=== PATIENT | female | born 1950 | race Caucasian/White ===

== ENCOUNTER 2024-02-08 15:00 | Emergency (ER) | payer MEDICARE, SELFPAY ==
[2024-02-08 15:02] VITALS: BP 171/75; PULSE 103; RESP 16; TEMP 36.7; O2SAT 92; BMI 25.9
[2024-02-08 15:06] VITALS: TEMP 36.8
--- NOTE | 2024-02-08 15:18 | ED.VIS.FALL ---
HPI HPI - Fall History of Present Illness Chief Complaint: Fall Detail of Chief Complaint: Fall with left arm injury Informant: patient Narrative Narrative: Patient presents to the emergency department via EMS after sustaining a fall this afternoon. Patient states that her landlord had just pain at her back and after the rain she slipped and fell on her deck. Patient fell onto her left arm injuring it. Denies striking her head or loss of consciousness. She denies neck pain or chest pain or abdominal pain. She has no other complaints. She is not on blood thinners. Patient is right-hand dominant. PFSH PFSH Home Medications ?Medication ?Instructions ?Recorded ?Last Taken ?Type hydrocodone-acetaminophen 5-325mg 1 tab PO Q4H PRN PRN Pain 2 days 02/08/24 Unknown Rx 5mg-325mg #15 TABLETS Allergy/AdvReac Type Severity Reaction Status Date / Time No Known Allergies Allergy Verified 02/08/24 15:06 ROS ROS ED Review of Systems ROS Unobtainable: other Constitutional Constitutional ED: Reports lethargy; Denies chills, fever(s), sweats or weight loss Eyes Eyes: Denies blurry vision, change in vision or diplopia ENT ENT ED: Denies rhinorrhea or sore throat Cardiovascular Cardiovascular: Denies chest pain, orthopnea or racing heartbeat Respiratory/Chest Respiratory/Chest: Denies cough, dyspnea, dyspnea on exertion, orthopnea or sputum Gastrointestinal Gastrointestinal: Denies abdominal pain, diarrhea, nausea or vomiting Genitourinary Genitourinary ED: Denies dysuria, hematuria or urinary frequency Musculoskeletal Musculoskeletal: Reports other Details: Left upper arm injury/pain ; Denies arthralgias, back pain, myalgias or neck pain Integumentary Denies abscess, Abrasions or rash Neurologic Neurologic: Denies headache(s) or weakness Psychiatric Psychiatric: Denies anxiety, depression or suicidal thoughts Endocrine Endocrinology: Denies polydipsia, polyphagia or polyuria Hematologic/Lymphatic Hematologic/Lymphatic: Denies easy bleeding, easy bruising or lymphadenopathy Allergic/Immunologic Allergic/Immunologic ED: Denies mouth swelling, tongue swelling or urticaria EXAM Physical Exam Const Vital Signs: 02/08/24 15:02 02/08/24 15:06 Temperature 98.1 F 98.3 F Temperature Source Temporal Oral Pulse Rate 103 H Respiratory Rate 16 Blood Pressure 171/75 H Blood Pressure Mean 107 Pulse Ox 92 Oxygen Delivery Method Room Air Positive well nourished and well developed General Appearance ED: well developed and NAD HEENT Reports TM's clear and moist mucous membranes normocephalic and atraumatic; Negative for trauma or tenderness Tympanic Membrane ED: Yes TM's clear Eyes PERRL and EOMs intact bilaterally General Eye ED: Negative for pale conjunctiva or scleral icterus Neck no lymphadenopathy, supple and no JVD General: Negative for tenderness Chest Wall inspection of chest normal and palpation of chest normal Chest: Negative for tenderness Resp normal respiratory effort and clear to auscultation bilaterally Effort and Inspection: Negative for respiratory distress or pain with movement Auscultation: Negative for rhonchi, wheezes or diminished lung sounds Cardio regular rate, regular rhythm, S1 normal heart sound, S2 normal heart sound and no murmurs Peripheral Pulses: pulses 2+ throughout GI normal to inspection, nondistended, normoactive bowel sounds, soft to palpation, non-tender, non-distended and no masses Back/Spine no CVA tenderness and no thoracic nor lumbar tenderness Extremity Extremity Narrative: Left upper arm-patient has diffuse tenderness over the area of the glenohumeral joint. There is no obvious sulcus sign or deformity noted. No significant ecchymosis or bruising. She has decreased ability to abduct and move the arm at the glenohumeral joint secondary to pain. She has no tenderness at the elbow and normal range of motion at the elbow and wrist. Neurovascularly intact. General Extremety ED: Negative for edema General Extremity: Negative for edema Neuro oriented x3, CN's II-XII intact bilaterally, no sensory deficits noted and gait normal Sensorium / Orientation: awake, alert, oriented to person, oriented to place and oriented to time Motor Exam: strength 5/5 throughout and strength abnormal Psych mental status grossly normal Skin no rashes or lesions noted and no wounds MDM MDM MDM Narrative Medical decision making narrative: Patient presents with fall and injury to the left upper arm. X-rays interpreted by myself as proximal humerus fracture. Patient will be placed in a sling. I did give her a dose of morphine and Zofran IM. She will be given a prescription for [place] and refer to orthopedics for follow-up. She will be placed in a sling. Radiography Diagnostic Testin view x-rays of left humerus obtained interpreted by myself as fracture of the proximal humerus relatively nondisplaced. Official report from radiology pending. Discharge Plan Triage Chief Complaint: Fall ED Provider: Aretha Grossman Dx/Rx/DC Orders Clinical Impression: Closed fracture of left proximal humerus Instructions: ED Fracture, Upper Extremity Prescriptions: New hydrocodone-acetaminophen 5-325 mg tablet 1 tab PO Q4H PRN PRN (Reason: Pain) 2 Days Qty: 15 0RF Primary Care Provider: PodlogAye denis NP Referrals: Pan Bull MD [Med Staff - Active Staff] - 3-5 Days Print Language: Belarusian Disposition Disposition: Home, Self Care
--- NOTE | 2024-02-08 15:20 | RAD_ITS ---
STUDY: X-RAY - LEFT HUMERUS REASON FOR EXAM: Female, 74 years old. Fall/ injury TECHNIQUE: 2 view(s) of the humerus. COMPARISON: None. FINDINGS: Nondisplaced transverse fracture of the surgical neck of the proximal humerus. This extends to the greater tuberosity. Soft tissue swelling RAD/Humerus min 2 Views IMPRESSION: Nondisplaced fracture through the surgical neck of the proximal humerus with extension to the greater tuberosity. Soft tissue swelling. Electronically Signed: Julio Rocha MD at 15:39 EDT ,
[2024-02-08] MEDS: Ondansetron 4 MG/2 ML Vial IM (15:57)
[2024-02-08] MEDS: Morphine 4 MG/ML Syringe IM (15:57)
== END 2024-02-08 16:19 | disposition home or self-care (01) ==
LOC: ED 15:46
PROVIDERS: Emergency Provider Emergency Medicine; PCP Nurse Practitioner Primary Care; Visit Provider Emergency Medicine
DX: S42.215A Unspecified nondisplaced fracture of surgical neck of left humerus, initial encounter for closed fracture (principal); Y92.89 Other specified places as the place of occurrence of the external cause
CPT/HCPCS: 73060; 96372; 99284; J2405

== ENCOUNTER 2024-04-03 12:30 | Outpatient (RCR) | payer MEDICARE, SELFPAY ==
--- NOTE | 2024-02-23 11:55 | HP.PTEVAL ---
Patient's Visit Information Visit Information Visit Information: ANN HOFFMAN is a 74 year old F referred to Physical Therapy by Dr. Pan Bull MD with a diagnosis of Closed Fx of L proximal humerus. Date of Evaluation: 02/23/24 Physical Therapist: SCARLET Robbins Visit Plan Frequency: 1-2x /Week Duration: 2 Months Plan: 1-2X/ week for 8 weeks for Prom of the L shoulder and then progress to AAROM to AROM and scapular strengthening. May start some light strengthening after 4-6 weeks from injury as long as pain free AROM. May use heat/ice as needed HEP: shoulder blade squeezes, Shoulder rolls, pendulums Subjective Subjective: Pt slipped on her wet porch and fell on her L shoulder. Her pain is mid shaft area and it hurts with movement. It is still bruised. she fell 2 weeks ago this past Tuesday. She is R handed. She is not sleeping very long due to the pain. She is sleeping on a couch and has pain when she rolls over on her L shoulder. She will try to go back into her bed tonight. She has some N&T in her legs and claim they are weak. She was in a sling until Tuesday. Pain L shoulder pain: Pain Intensity (Out of 10): 4 Comment: if tries to move it the pain increases Objective Objective: R handed Observation: Pt is still bruised. Pt is guarded in her motion Pt is able to do shoulder rolls and shoulder blade squeezes without issue PROM L shoulder flexion 95, 42 ER PROM at 30 degrees ABD , L shoulder PROM ABD approx 90 Pendulums hurt fw/bw but ok side to side Balance/Special Test Scores Quick DASH Score: 84.0900 Goals Goal 1:: I HEP Goal Time Frame: 6-8 Weeks Goal 2:: Increase AROM to 120 degrees elevation by discharge Goal Time Frame: 6-8 Weeks Goal 3:: Be able to use L shoulder with ADL's without pain or difficulty Goal Time Frame: 6-8 Weeks Goal 4:: Increase PROM to 160 degrees elevation ER PROM Goal Time Frame: 6-8 Weeks Rehabilitation Potential Rehabilitation Potential: Good Anticipated Interventions Patient/Client Instruction: Educate patient on: Condition and Plan of Care For the Purpose of:: To decrease pain, To decrease swelling/inflammation, To increase ROM, To improve nutrient delivery to tissue, To improve muscle performance and motor function, To improve ability to perform ADL's, To increase tolerance to activity/condition/position, To improve performance and independence with ADL's, To improve ability of physical actions for home/community/work/leisure, To improve health of tissue, To decrease soft tissue restriction and To increase flexibility/ROM Therapeutic Exercise to Include: Strength training, Endurance training, Postural training, Flexibilty training, Neuromotor development, Passive ROM, Active ROM and Scapular Strength/Stabilization For the Purpose of:: To decrease pain, To increase ROM, To improve nutrient delivery to tissue, To improve muscle performance and motor function, To improve ability to perform ADL's, To increase tolerance to activity/condition/position, To improve performance and independence with ADL's, To decrease level of supervision to perform tasks, To improve health of tissue, To decrease soft tissue restriction and To increase flexibility/ROM Manual Therapy Techniques to Include: Passive ROM For the Purpose of:: To increase ROM Cryotherapy (ice pack, ice massage): Yes Thermo therapy (hot pack): Yes For the Purpose of:: To decrease pain, To decrease swelling/inflammation and To improve nutrient delivery to tissue Text: Thank you for the opportunity to evaluate your patient. For Medicare and Medicare HMO plans, please review the plan of care and approve it. It will need to be FAXED BACK to us at [phone] for Medicare purposes. For Medicare only, by signing this I certify the plan of care. Please let me know if there are questions or concerns regarding this plan of care. Physician Signature: Date:
--- NOTE | 2024-04-03 13:18 | HP.PTDCSUM ---
Discharge Summary D/C summary: It has been my pleasure to treat ANN HOFFMAN referred by Dr. Pan Bull MD, with the diagnosis of Closed Fx of L proximal humerus (02/07). for a total of 6 visit(s). Discharge Date: 04/03/24 Please see the following information for a summary of their discharge status. Subjective Subjective: Pt wants to be discharged and reports that she works really hard at home and will continue to do so. Pain L shoulder pain: Pain Intensity (Out of 10): 0 Overall Improvement % Improvement: 50 Objective Objective/Function: L shoulder AROM 115 flexion L Shoulder PROM 165 flexion Goals Goal 1:: I HEP Goal Progress: Goal Met Goal 2:: Increase AROM to 120 degrees elevation by discharge Goal Progress: Progressing Goal 3:: Be able to use L shoulder with ADL's without pain or difficulty Goal Progress: Goal Met Goal 4:: Increase PROM to 160 degrees elevation ER PROM Goal Progress: Goal Met Plan Plan: DC PT to HEP per pt request D/C Information Discharge Comments: DC PT to HEP per pt request d/c sentence: If there are questions or concerns regarding this patient's physical therapy, please feel free to call me at [phone]. Thank you for the referral of this patient. Sincerely, India Jones, MPT Balance/Gait/Functional tests Balance/Special Test Scores Quick DASH Score: 15.9075 Improvement % Improvement: 50
== END 2024-04-03 13:33 | disposition home or self-care (01) ==
LOC: PT 12:30
PROVIDERS: PCP Nurse Practitioner Primary Care; Referring Provider Orthopaedic Surgery Sports Medicine; Visit Provider Orthopaedic Surgery Sports Medicine
DX: S42.202D Unspecified fracture of upper end of left humerus, subsequent encounter for fracture with routine healing (principal)
CPT/HCPCS: 97110; 97140; 97161; 97530

== ENCOUNTER 2024-11-13 10:40 | Emergency (ER) | payer MEDICARE, SELFPAY ==
[2024-11-13 10:43] VITALS: BP 215/60; PULSE 78; RESP 16; TEMP 35.9; O2SAT 98
--- NOTE | 2024-11-13 11:08 | EX.ED.DYSGE1 ---
HPI History of Present Illness Chief Complaint: Dizziness Informant: patient and family Narrative Narrative: 74-year-old female that lives by herself has been having episodic dizziness that feels like spinning for the past 3.5 days. She is triggering the episodes whenever she changes positions or turns her head, for instance either when getting up from a seated position, or turning to go around the corner in her home, and they last a couple minutes no more than 5 before resolves when she rests. Some nausea no vomiting. She has been having some fullness in her head, but no cisco headache associated with this. No vision changes. No peripheral neurologic symptoms such as numbness or weakness on one side of her body, however she is feeling like there are needles everywhere in her body at the same time when this occurs. She denies any chest pain, dyspnea, neck pain. She does have some fullness in her ears but no earache. No tinnitus. [facility] Medical History Arthritis Hyperlipidemia HTN (hypertension) Home Medications ?Medication ?Instructions ?Recorded ?Last Taken ?Type hydrochlorothiazide 12.5 mg capsule 12.5 mg PO DAILY 02/08/24 11/12/24 History omeprazole 40 mg capsule,delayed 40 mg PO DAILY 02/08/24 11/12/24 History release rosuvastatin 10 mg tablet 10 mg PO QHS 02/08/24 11/12/24 History ascorbic acid (vitamin C) 500 mg 500 mg PO DAILY 11/13/24 11/12/24 History tablet loratadine 10 mg tablet 10 mg PO DAILY 11/13/24 11/12/24 History (Allerclear) meclizine 25 mg tablet 25 mg PO TID PRN dizziness #20 tabs 11/13/24 Unknown Rx potassium gluconate 600 mg (99 mg) 600 mg PO DAILY 11/13/24 11/12/24 History tablet Allergy/AdvReac Type Severity Reaction Status Date / Time No Known Allergies Allergy Verified 11/13/24 10:40 Social History (Updated 11/13/24 @ 11:48 by Martha Solorio) household members: spouse housing: house Smoking Status: Current every day smoker tobacco type: cigarettes alcohol intake: never ROS ROS ED Constitutional Constitutional ED: Denies chills or fever(s) Eyes Eyes: Denies change in vision or diplopia ENT ENT ED: Denies rhinorrhea or sore throat Cardiovascular Cardiovascular: Denies chest pain or palpitations Respiratory/Chest Respiratory/Chest: Denies cough or dyspnea Gastrointestinal Gastrointestinal: Reports nausea; Denies abdominal pain, diarrhea or vomiting Genitourinary Genitourinary ED: Denies dysuria or hematuria Musculoskeletal Musculoskeletal: Denies back pain or neck pain Integumentary Denies abscess or rash Neurologic Neurologic: Reports as per HPI, vertigo and other Details: Abnormal gait when vertiginous, but when not vertiginous no problems with walking with her walker ; Denies headache(s), paresthesias or weakness Psychiatric Psychiatric: Denies anxiety or suicidal thoughts EXAM Physical Exam Const Vital Signs: 11/13/24 10:43 11/13/24 12:40 11/13/24 14:00 Temperature 96.6 F L Temperature Source Temporal Pulse Rate 78 87 78 Respiratory Rate 16 16 16 Blood Pressure 215/60 H 169/112 H 124/69 H Blood Pressure Mean 111 131 87 Pulse Ox 98 96 98 Oxygen Delivery Method Room Air 11/13/24 14:14 Temperature 97.6 F L Temperature Source Pulse Rate 78 Respiratory Rate 16 Blood Pressure 124/69 H Blood Pressure Mean 87 Pulse Ox 98 Oxygen Delivery Method Positive well nourished and well developed General Appearance ED: well developed and NAD HEENT Reports TM's clear and moist mucous membranes HEENT Narrative: No sinus tenderness throughout. normocephalic and atraumatic Tympanic Membrane ED: Yes TM's clear Eyes PERRL and EOMs intact bilaterally Eyes Narrative: No direction changing nystagmus. No vertical or rotatory nystagmus. Exam somewhat limited due to cataracts and baseline issues with vision. Negative skew test, performed when mildly vertiginous. Normal visual field exam. Neck full ROM and supple Resp normal respiratory effort and clear to auscultation bilaterally Cardio regular rate, regular rhythm and no murmurs GI non-tender and non-distended Auscultation: normoactive bowel sounds Palpation: soft Back/Spine no CVA tenderness General Back: other FROM Extremity normal to inspection General Extremety ED: Negative for edema, pulses abnormal or tenderness General Extremity: Negative for edema or pulses abnormal Neuro oriented x3, CN's II-XII intact bilaterally and no sensory deficits noted Neuro Narrative: No dysmetria, [id number] and [id number] bilaterally normal. NIHSS 0. Normal speech. Sensorium / Orientation: awake and alert Motor Exam: strength 5/5 throughout Psych mental status grossly normal Skin no rashes or lesions noted and no wounds MDM MDM MDM Narrative Medical decision making narrative: This patient is presenting with symptoms that are compatible with BPPV. I did [place]-Hallpike maneuver, she had triggered symptoms with the maneuver bilaterally was worse to the right. I then attempted to do a jolt test, but symptoms were resolving while attempting this and she has poor vision, so the results were ambiguous and limited. Given her meclizine and also obtaining some basic labs and a CT of the head due to the fact that her blood pressure in triage was 215/60 and she is having fullness sensation to evaluate for sphenoid or other sinusitis that could be related to this. She states she feels congested but it is not in her nose. Labs are obtained and unremarkable, CT was obtained I reviewed the images and the report, which I agree with. It is negative for any acute including sinusitis or sphenoid sinusitis. In the meantime the patient's blood pressure came down to 124/69 over time, without specifically treating it, and the meclizine we gave her did help minimize her symptoms some. When she got up and change positions to walk, she was still getting a little dizzy but it soften the symptoms. I offered admission she declined and prefers to go home. She understands her risk of falling. We discussed getting rid of area rugs, using her walker to prevent falls, and I gave her a prescription for meclizine along with a referral to ENT if her symptoms do not self-resolve. She is comfortable with that plan. Lab Data Attestation: I reviewed the patient's lab results. Labs: Laboratory Results - last 24 hr 11/13/24 11:45 WBC 8.4 RBC 4.39 Hgb 12.7 Hct 39.1 MCV 89.1 MCH 28.9 MCHC 32.5 RDW Std Deviation 43.1 RDW Coeff of Tracey 13.1 Plt Count 519 H MPV 8.6 Immature Gran % (Auto) 0.200 Neut % (Auto) 67.5 Lymph % (Auto) 24.8 [place] % (Auto) 6.4 Eos % (Auto) 0.4 Baso % (Auto) 0.7 Absolute Neuts (auto) 5.7 Absolute Lymphs (auto) 2.09 Nucleated RBC % 0 Sodium 133 Potassium 3.7 Chloride 96 L Carbon Dioxide 25.5 Anion Gap 11 BUN 7 Creatinine 0.55 L Est GFR (MDRD) Non-Af 95 BUN/Creatinine Ratio 12.8 Glucose 106 H Calcium 9.4 Radiography Diagnostic Testing: Clinical Impression(s) from Imaging Studies Brain CT 11/13/24 12:00 IMPRESSION: 1. No acute intracranial hemorrhage, midline shift or mass effect. If symptoms persist, further evaluation with MRI is recommended. 2. Mild small vessel ischemic/degenerative changes. Reading Location: [facility] Discharge Plan Triage Chief Complaint: Dizziness ED Provider: Delgado [place] Dx/Rx/DC Orders Clinical Impression: Benign paroxysmal positional vertigo, Episode of hypertension Instructions: BPPV Prescriptions: New meclizine 25 mg tablet 25 mg PO TID PRN (Reason: dizziness) Qty: 20 0RF No Action loratadine [Allerclear] 10 mg tablet 10 mg PO DAILY ascorbic acid (vitamin C) 500 mg tablet 500 mg PO DAILY potassium gluconate 600 mg (99 mg) tablet 600 mg PO DAILY omeprazole 40 mg capsule,delayed release(DR/EC) 40 mg PO DAILY hydrochlorothiazide 12.5 mg capsule 12.5 mg PO DAILY rosuvastatin 10 mg tablet 10 mg PO QHS Primary Care Provider: Aye Pedroza NP Referrals: Marshall Cook MD [Med Staff - Active Staff] - As soon as possible (or other avail ENT for your vertigo) Aye Pedroza NP, LEGAL NURSE CONSULTANT-C [Primary Care Provider] - (to have your blood pressure rechecked when your dizziness is improved) Print Language: Arabic Disposition Disposition: Home, Self Care Discharge Date/Time: 11/13/24 14:15
[2024-11-13] MEDS: Meclizine HCl 25 MG Tablet PO (11:50)
[2024-11-13 12:00] LABS: Absolute Lymphocyte Count 2.09 X10^3/uL (0.83-4.51); Absolute Neutrophil Count 5.7 X10^3/uL (2.0-7.7); Basophil# 0.06 X10^3/uL; Basophil% 0.7 % (0-1); Eosinophil# 0.03 X10^3/uL; Eosinophils% 0.4 % (0-5); Hematocrit 39.1 % (37-47); Hemoglobin 12.7 g/dL (12.0-15.0); Lymphocyte # 2.09 X10^3/ul (0.83-4.51); Lymphocyte % 24.8 % (19-41); Mean Corp Hgb Conc 32.5 g/dL (32-36); Mean Corpuscular Hgb 28.9 pg (27.0-32.0); Mean Corpuscular Volume 89.1 fL (81-99); Mean Platelet Vol. 8.6 fl (6.2-12.0); Monocyte# 0.54 X10^3/uL; Monocyte% 6.4 % (0-10); NRBC Flagged by Analyzer 0 % (0-5); Neutrophil # 5.68 X10^3/uL (2.7-7.7); Neutrophil % 67.5 % (47-70); Platelet Count 519 K/mm3 (150-450); RBC Distribution Width CV 13.1 % (11.6-14.6); RBC Distribution Width SD 43.1 fl (35.1-43.9); Red Blood Count 4.39 M/mm3 (4.2-5.4); White Blood Count 8.4 K/mm3 (4.4-11.0)
--- NOTE | 2024-11-13 12:00 | CT_ITS ---
EXAM: CT Head Without Intravenous Contrast CLINICAL INDICATION: HEAD FULLNESS, VERTIGO TECHNIQUE: Axial computed tomography images of the head/brain without intravenous contrast. This CT exam was performed using one or more of the following dose reduction techniques: automated exposure control, adjustment of the mA and/or kV according to patient size, and/or use of iterative reconstruction technique. COMPARISON: No relevant prior studies available. FINDINGS: BRAIN AND EXTRA-AXIAL SPACES: The cerebral and cerebellar sulci are mildly prominent consistent with mild brain atrophy. No acute intracranial hemorrhage, midline shift or mass effect. If symptoms persist, further evaluation with MRI is recommended. Mild areas of decreased attenuation in the deep cerebral white matter are consistent with mild small vessel ischemic/degenerative changes. BONES/JOINTS: Unremarkable. No acute fracture. SOFT TISSUES: Unremarkable. SINUSES: Unremarkable as visualized. No acute sinusitis. MASTOID AIR CELLS: Unremarkable as visualized. No mastoid effusion. CT/Brain/Head without Contrast IMPRESSION: 1. No acute intracranial hemorrhage, midline shift or mass effect. If symptoms persist, further evaluation with MRI is recommended. 2. Mild small vessel ischemic/degenerative changes. Reading [facility]
[2024-11-13 12:39] LABS: Anion Gap 11 (5-15); BUN 7 mg/dL (4-19); BUN/Creat Ratio 12.8 RATIO (10-20); Calcium,Total 9.4 mg/dL (7.6-11.0); Carbon Dioxide 25.5 mmol/L (21.0-32.0); Chloride 96 mmol/L (98-108); Creatinine, Serum 0.55 mg/dL (0.70-1.20); EST Glomerular Filtration Rate 95 (>60); Glucose 106 mg/dL (70-99); Potassium 3.7 mmol/L (3.3-5.1); Sodium Level 133 mmol/L (133-145)
[2024-11-13 12:40] VITALS: BP 169/112; PULSE 87; RESP 16; O2SAT 96
[2024-11-13 13:57] VITALS: O2SAT 95
[2024-11-13 14:00] VITALS: BP 124/69; PULSE 78; RESP 16; O2SAT 98
[2024-11-13 14:14] VITALS: BP 124/69; PULSE 78; RESP 16; TEMP 36.4; O2SAT 98
== END 2024-11-13 14:15 | disposition home or self-care (01) ==
PROVIDERS: Emergency Provider Emergency Medicine; PCP Nurse Practitioner Primary Care; Visit Provider Emergency Medicine
DX: H81.10 Benign paroxysmal vertigo, unspecified ear (principal); I10 Essential (primary) hypertension; F17.210 Nicotine dependence, cigarettes, uncomplicated; E78.5 Hyperlipidemia, unspecified; Z79.899 Other long term (current) drug therapy
CPT/HCPCS: 70450; 80048; 85025; 99282; A4216